=== PATIENT | male | born 1965 | race Caucasian/White ===

== ENCOUNTER 2021-05-16 14:58 | Inpatient (IN) | payer OTHER, SELFPAY ==
[2021-05-16] VITALS (7 sets, daily range): BP systolic 118–159; BP diastolic 65–87
[~2021-05-16] VITALS: Ht 177.8 cm; Wt 82.1 kg
--- NOTE | 2021-05-16 15:00 | NUR ---
Griffin BURT via gurney to bed 07.
--- NOTE | 2021-05-16 15:13 | NUR ---
PER ERMD 12 LEAD WAS DONE ON PT AND CAME BACK SINUS TACHYCARDIA AT 129 HR.
[2021-05-16] MEDS ORDERED: LORazepam 2 MG/ML VIAL IVP ONE (15:20)
[2021-05-16] MEDS ORDERED: ONDANSETRON 4 MG/2 ML VIAL IVP ONE (15:20)
[2021-05-16] MEDS ORDERED: KETOROLAC 30 MG/ML VIAL IVP ONE (15:20)
[2021-05-16] MEDS ORDERED: NACL 0.9% 2,000 ML IV ONE (15:20)
--- NOTE | 2021-05-16 15:30 | NUR ---
56 Y MALE BIBA C/O TO ABDOMINAL PAIN. PER EMS "PT HAS BEEN UNABLE TO HOLD FOOD DOWN FOR THE PAST 3 DAYS." C/O N/V. PT ALSO STATED "HE STARTED A NEW MEDICATION CALLED TRULICTY BEFORE THE SYMPTOMS STARTED TO OCCUR." PER EMS "PT IS EXPERINCING ANXIETY CURRENTLY WELL." PMH: HM, HLD, HTN, ANXIETY, PARKINSON'S NKA
[2021-05-16] MEDS ORDERED: MORPHINE SULFATE 4 MG/ML SYR IVP ONE (15:35)
[2021-05-16 15:48] LABS: HEMATOCRIT 54.1 % (36-52); HEMOGLOBIN 17.9 g/dL (12.0-18.0); MEAN CORPUSCULAR HEMOGLOBIN 31 pg (27-31); MEAN CORPUSCULAR HGB CONC 33 g/dL (33-37); MEAN CORPUSCULAR VOLUME 93.2 fL (80-94); PLATELET COUNT (AUTO) 356 K/uL (140-450); RED CELL DISTRIBUTION WIDTH 13.8 % (11.6-13.7)
[2021-05-16 15:52] LABS: WHITE BLOOD COUNT (AUTO) 26.7 K/uL (4.8-10.8)
[2021-05-16] MEDS ORDERED: METOCLOPRAMIDE 10 MG/2 ML INJ VIAL IVP ONE (16:05)
[2021-05-16] MEDS ORDERED: diphenhydrAMINE 50 MG/ML VIAL IVP ONE (16:05)
[2021-05-16 16:09] LABS: ALBUMIN 4.8 g/dL (3.4-5.0); ANION GAP 34.7 (8-16); CREATININE 1.7 mg/dL (0.6-1.3); POTASSIUM 5.4 mmol/L (3.5-5.1); TOTAL BILIRUBIN 0.6 mg/dL (0.0-1.0)
[2021-05-16 16:13] LABS: LYMPHOCYTES % (MANUAL) 6 % (20-46); MONOCYTES % (MANUAL) 7 % (5-12)
--- NOTE | 2021-05-16 16:15 | NUR ---
lab bedside with patient
[2021-05-16 16:19] LABS: CARBON DIOXIDE 8.7 mmol/L (21-32)
--- NOTE | 2021-05-16 16:21 | NUR ---
PT TAKEN VIA GURNEY TO CT SCAN
[2021-05-16] MEDS ORDERED: NACL 0.9% 1,500 ML IV ONE (16:25)
--- NOTE | 2021-05-16 16:30 | NUR ---
pt returned from ct scan
[2021-05-16] MEDS ORDERED: GABA300C PO (16:35)
[2021-05-16] MEDS ORDERED: TRAM50TA1 PO (16:35)
[2021-05-16] MEDS ORDERED: BUPR150T12 PO (16:35)
[2021-05-16] MEDS ORDERED: BUS5 PO (16:35)
[2021-05-16] MEDS ORDERED: OMEP40EC23 PO (16:35)
[2021-05-16] MEDS ORDERED: DULA0.75 SC (16:35)
[2021-05-16] MEDS ORDERED: VENL150C1 PO (16:35)
[2021-05-16] MEDS ORDERED: METO25TE2 PO (16:35)
[2021-05-16] MEDS ORDERED: ATOR10TA PO (16:35)
[2021-05-16] MEDS ORDERED: ISOS20TA13 PO (16:35)
[2021-05-16] MEDS ORDERED: LIRA6SOL1 SQ (16:35)
[2021-05-16] MEDS ORDERED: ALOG25TA PO (16:35)
[2021-05-16] MEDS ORDERED: EMPA25TA PO (16:35)
[2021-05-16] MEDS ORDERED: VORT5TAB PO (16:35)
[2021-05-16] MEDS ORDERED: [UNRECOGNIZED DRUG - CODE] MC (16:35)
[2021-05-16] MEDS ORDERED: TERA5CAP8 PO (16:35)
[2021-05-16] MEDS ORDERED: HYDR-5191 PO (16:35)
[2021-05-16] MEDS ORDERED: LISI-487 PO (16:35)
--- NOTE | 2021-05-16 16:35 | NUR ---
lab and rt at bedside
[2021-05-16] MEDS ORDERED: INSULIN REGULAR, HUMAN 100 UNIT in NACL 0.9% 100 ML IV ONE ×2 (16:55)
[2021-05-16] MEDS ORDERED: PIPERACILLIN/TAZOBACTAM 3.375 GM in DEXTROSE 5% 50 ML IV ONE (16:55)
[2021-05-16] MEDS ORDERED: INSULIN REGULAR, HUMAN 100 UNIT in NACL 0.9% 100 ML IV SCH ×4 (16:59→17:05)
[2021-05-16] MEDS ORDERED: PIPERACILLIN/TAZOBACTAM 3.375 GM VIAL IV ONE (16:59)
[2021-05-16] MEDS ORDERED: ACETAMINOPHEN 325 MG TAB PO PRN (17:05)
[2021-05-16] MEDS ORDERED: MORPHINE SULFATE 2 MG/ML SYR IVP PRN (17:05)
[2021-05-16] MEDS ORDERED: MAG SULF 2000 MG/WATER PREMIX 50 ML IV PRN (17:05)
[2021-05-16] MEDS: BLOOD GLUCOSE MONITORING 1 DEV DEV FS SCH ×7 (17:05→23:28)
[2021-05-16] MEDS ORDERED: ONDANSETRON 4 MG/2 ML VIAL IM/IVP PRN (17:05)
[2021-05-16] MEDS ORDERED: HYDROcodone/APAP 5/325 MG 1 TAB TAB PO PRN (17:05)
[2021-05-16] MEDS ORDERED: MAGNESIUM OXIDE 400 MG TAB PO PRN (17:05)
[2021-05-16] MEDS ORDERED: DEXTROSE 50% 50 ML SYR IVP PRN (17:05)
[2021-05-16] MEDS ORDERED: DOCUSATE SODIUM 100 MG GELCAP PO PRN (17:05)
[2021-05-16] MEDS ORDERED: SODIUM BICARBONATE 4.2% 5 MEQ/10 ML SYR IV ONE (17:15)
--- NOTE | 2021-05-16 17:44 | NUR ---
Patient will be admitted to care of DR PACHECO. Admited to ICU. Will go to room ICU-8. Belongings list completed. Report to YAHAIRA OZUNA.
--- NOTE | 2021-05-16 17:45 | NUR ---
RECEIVED BEDSIDE REPORT FROM ED RN CASPER, PT RESTING, AWAKE ALERT, ABLE TO LET NEEDS KNOWN, YI SPEAKING, AAOX4. IV TO LEFT HAND 20G, PATENT INTACT, INFUSING INSULIN @ 8UNITS/HR AND BOLUS NS. PT ON ROOM AIR, NO SOB NOTED, SATURATING @ 100%. 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
[2021-05-16] MEDS ORDERED: SODIUM BICARBONATE 8.4% PFS 50 MEQ/50 ML SYR IVP SCH (18:00)
--- NOTE | 2021-05-16 18:00 | NUR ---
PT ARRIVED IN UNIT, TRANSFER PT TO BED, TOLERATED WELL, MRSA SWAB TAKEN, ORIENT PT TO CALL LIGHT ROOM, AND RESTROOM, PT STATED UNDERSTANDING, WILL CONTINUE TO MONITOR.
[2021-05-16 18:06] LABS: APPEARANCE,URINE CLEAR (CLEAR); BILIRUBIN,URINE 2+ (NEGATIVE); BLOOD, URINE 1+ (NEGATIVE); COLOR,URINE YELLOW (YELLOW); LEUKOCYTE ESTERASE ,URINE NEGATIVE (NEGATIVE); NITRITE, URINE NEGATIVE (NEGATIVE); UGLUCOSE 3+ (NEGATIVE)
[2021-05-16] MEDS: PANTOPRAZOLE 40 MG INJ VIAL IVP SCH (18:10)
[2021-05-16] MEDS: NACL 0.9% 1,000 ML IV SCH ×2 (18:11→20:00)
[2021-05-16 18:18] LABS: BARBITURATE, URINE NEGATIVE ng/ml (NEG <=200); BENZODIAZEPINE, URINE NEGATIVE ng/mL (NEG <=200); CANNABINOID, URINE POSITIVE ng/mL (NEG <=50); COCAINE, URINE NEGATIVE ng/mL (NEG <=300); OPIATE, URINE POSITIVE ng/mL (NEG <=2000); PHENCYCLIDINE SCREEN,URINE NEGATIVE ng/mL (NEG <=25)
--- NOTE | 2021-05-16 18:21 | NUR ---
CALLED DR. PACHECO REGARDING PT C/O HE JUST GOT 4MG IV MORPHINE 2HRS PRIOR. PER DR TO CHANGE ORDER MORPHINE TO 2MG IV PRN SEVERE PAIN Q3H, AND TRAMADOL 50MG Q6H PO PRN MEDIUM PAIN. AND OK TO GIVE 1 DOSE OF MORPHINE RIGHT NOW. WILL PUT IN ORDERS AND CONTINUE WITH ORDERS.
--- NOTE | 2021-05-16 18:22 | NUR ---
PT STATED HAVING TROUBLE BREATHING, HR ELEVATED, RR ELEVATED, PUT PT ON 2LPM O2 VIA NC. WILL CONTINUE TO MONITOR.
[2021-05-16 18:24] LABS: RBC,URINE 0-5 /HPF (0-5); WBC,URINE 0-5 /HPF (0-5)
[2021-05-16 18:25] LABS: FINE GRANULAR CASTS,URINE 0-10 /LPF (None Seen)
[2021-05-16 18:25] LABS: MAGNESIUM 2.1 mg/dL (1.8-2.4); PHOSPHORUS 5.7 mg/dL (2.5-4.9)
[2021-05-16] MEDS: MORPHINE SULFATE 2 MG/ML SYR IVP PRN ×2 (18:27→23:30)
--- NOTE | 2021-05-16 19:20 | NUR ---
RECEIVED REPORT FROM DAY SHIFT RN. PATIENT IS AOX4, ABLE TO MAKE NEEDS KNOWN, AMBULATORY. ST ON MONITOR. ON ROOM AIR. IV ON LH 22G CLEAN, DRY, AND INTACT, INFUSING INSULIN AT 8 UNITS/HR, PER MD ORDER. NPO EXCEPT MEDS. AMBULATES WITH ASSISTANCE TO RESTROOM. GENERAL FARMWORKER, PULSE OXIMETER, AND SAFETY MEASURES IN PLACE. BED IN LOW POSITION, BED LOCKED, HEAD OF BED IN COMFORTABLE POSITION. WILL CONTINUE TO MONITOR.
--- NOTE | 2021-05-16 19:21 | NUR ---
ENDORSED TO EMBOSSED OR IMPRESSED LETTERING PAINTER NURSE JOSEPH FOR CONTINUITY OF CARE.
[2021-05-16 20:36] LABS: ANION GAP 28.2 (8-16); CARBON DIOXIDE 11.7 mmol/L (21-32); CREATININE 1.5 mg/dL (0.6-1.3); POTASSIUM 4.9 mmol/L (3.5-5.1)
[2021-05-16 20:40] LABS: MAGNESIUM 1.7 mg/dL (1.8-2.4); PHOSPHORUS 2.9 mg/dL (2.5-4.9)
[2021-05-16] MEDS ORDERED: ISOSORBIDE DINITRATE 20 MG TAB PO SCH (21:00)
--- NOTE | 2021-05-16 21:05 | NUR ---
CHECKED BLOOD SUGAR, 100. STARTED D5 1/2 NS AT 200 ML/HR AND DECREASED INSULIN TO 0.05 UNITS/KG/HR PER PROTOCOL. WILL CONTINUE TO MONITOR.
[2021-05-16] MEDS: DEXT 5% / NACL 0.45% 1,000 ML IV SCH (21:45)
[2021-05-16] MEDS: METOPROLOL SUCCINATE 50 MG TABER PO SCH (21:47)
[2021-05-16] MEDS: buPROPion 150 MG TABER PO SCH (21:48)
--- NOTE | 2021-05-16 21:50 | NUR ---
ADMINISTERED SCHEDULED MEDICATION. PATIENT IS RESTING IN BED. DENIES PAIN. NO SIGNS OF DISTRESS. WILL CONTINUE TO MONITOR.
[2021-05-16] MEDS: ISOSORBIDE DINITRATE 20 MG TAB PO SCH (21:59)
--- NOTE | 2021-05-16 22:45 | NUR ---
PICC LINE NURSE, ADAM OZUNA, ARRIVED AND INSERTED PICC. XRAY ORDERED PER PROTOCOL.
[2021-05-17] VITALS (24 sets, daily range): BP systolic 90–151; BP diastolic 51–96
--- NOTE | 2021-05-17 00:10 | NUR ---
XRAY CONFIRMS PICC LINE IN PLACE AND ABLE TO USE. WILL CONTINUE TO MONITOR.
[2021-05-17] MEDS: BLOOD GLUCOSE MONITORING 1 DEV DEV FS SCH ×24 (00:31→23:05)
[2021-05-17 00:52] LABS: CREATININE 1.3 mg/dL (0.6-1.3); POTASSIUM 4.5 mmol/L (3.5-5.1)
[2021-05-17 00:54] LABS: CARBON DIOXIDE 9.5 mmol/L (21-32)
[2021-05-17 00:57] LABS: MAGNESIUM 1.7 mg/dL (1.8-2.4)
[2021-05-17] MEDS: traMADol 50 MG TAB PO PRN (01:50)
--- NOTE | 2021-05-17 02:02 | NUR ---
CHECKED ON PATIENT. NO SIGNS OF DISTRESS. PATIENT REPORTS PAIN, TRAMADOL GIVEN. WILL CONTINUE TO MONITOR.
[2021-05-17] MEDS: NACL 0.9% 1,000 ML IV SCH ×5 (03:05→23:05)
[2021-05-17] MEDS: DEXT 5% / NACL 0.45% 1,000 ML IV SCH ×2 (03:59→04:16)
[2021-05-17] MEDS: MORPHINE SULFATE 2 MG/ML SYR IVP PRN ×4 (03:59→21:50)
--- NOTE | 2021-05-17 05:00 | NUR ---
CHECKED ON PATIENT. RESTING IN BED. NO SIGNS OF PAIN OR DISTRESS. WILL CONTINUE TO MONITOR.
[2021-05-17 05:09] LABS: ANION GAP 20.3 (8-16); CARBON DIOXIDE 14.5 mmol/L (21-32); CREATININE 1.3 mg/dL (0.6-1.3); POTASSIUM 3.8 mmol/L (3.5-5.1)
[2021-05-17 05:12] LABS: BASOPHILS % (AUTO) 0.1 % (0.0-2.0); HEMATOCRIT 42.2 % (36-52); HEMOGLOBIN 14.4 g/dL (12.0-18.0); LYMPHOCYTES # (AUTO) 1.9 K/uL (2.0-11.5); LYMPHOCYTES % (AUTO) 9.2 % (20.5-51.1); MEAN CORPUSCULAR HEMOGLOBIN 31 pg (27-31); MEAN CORPUSCULAR HGB CONC 34 g/dL (33-37); MEAN CORPUSCULAR VOLUME 90.3 fL (80-94); MONOCYTES # (AUTO) 2.1 K/uL (0.8-1.0); MONOCYTES % (AUTO) 10.4 % (1.7-9.3); NEUTROPHILS # (AUTO) 16.3 K/uL (1.8-7.7); NEUTROPHILS % (AUTO) 80.3 % (42.2-75.2); PLATELET COUNT (AUTO) 250 K/uL (140-450); RED BLOOD CELL COUNT(AUTO) 4.68 MIL/uL (4.20-6.10); RED CELL DISTRIBUTION WIDTH 13.4 % (11.6-13.7); WHITE BLOOD COUNT (AUTO) 20.3 K/uL (4.8-10.8)
[2021-05-17 05:14] LABS: MAGNESIUM 1.6 mg/dL (1.8-2.4); PHOSPHORUS 1.6 mg/dL (2.5-4.9)
--- NOTE | 2021-05-17 06:15 | NUR ---
CHECKED ON PATIENT. RESTING IN BED. NO SIGNS OF PAIN OR DISTRESS. WILL CONTINUE TO MONITOR.
--- NOTE | 2021-05-17 06:54 | NUR ---
PATIENT HAS BEEN SCREENED AND CATEGORIZED HIGH NUTRITION RISK. PATIENT WILL BE SEEN WITHIN 1-2 DAYS OF ADMISSION. 05/18/21-05/19/21 GABRIELA BENAVIDES MS, RDN
--- NOTE | 2021-05-17 07:15 | NUR ---
RECEIVED REPORT FROM RUSSIAN HISTORY PROFESSOR NURSE. PT IS RESTING IN BED AND STABLE. A & O X 4 AND ABLE TO AMBULATE. PICC LINE IS INTACT AND PATENT WITH INSULIN AT 0.05 UNITS/KG/HR AND D5NS0.45 AT 250 ML/HR. PT IS ON ROOM AIR WITH NO SIGN OF DISTRESS OR SOB. PT IS ABLE TO UTILIZE VOID ON HIS OWN. SKIN IS INTACT AND DRY. GAP IS AT 20.3 AND BLOOD GLUCOSE IS AT 80. WILL CONTINUE TO MONITOR AND ASSESS THROUGHOUT SHIFT.
--- NOTE | 2021-05-17 08:50 | NUR ---
DR ALMARAZ CAME AND ASSESSED PT AND ORDERED A FULL LIQUID DIET.
[2021-05-17] MEDS: VENLAFAXINE XR 75 MG CAPER PO SCH (08:59)
[2021-05-17] MEDS: PANTOPRAZOLE 40 MG INJ VIAL IVP SCH (08:59)
[2021-05-17] MEDS: lisinopriL 20 MG TAB PO SCH (09:00)
[2021-05-17] MEDS: ISOSORBIDE DINITRATE 20 MG TAB PO SCH ×2 (09:00→21:00)
--- NOTE | 2021-05-17 09:00 | NUR ---
MEDICATIONS WERE ADMINISTERED AND PT TOLERATED WELL.
[2021-05-17 09:01] LABS: ANION GAP 16.8 (8-16); CARBON DIOXIDE 15.7 mmol/L (21-32); CREATININE 1.1 mg/dL (0.6-1.3); POTASSIUM 3.5 mmol/L (3.5-5.1)
[2021-05-17] MEDS: ATORVASTATIN 20 MG TAB PO SCH (09:01)
[2021-05-17] MEDS: METOPROLOL SUCCINATE 50 MG TABER PO SCH ×2 (09:01→21:00)
[2021-05-17] MEDS: TERAZOSIN 1 MG CAP PO SCH (09:01)
[2021-05-17] MEDS: busPIRone 5 MG TAB PO SCH (09:02)
[2021-05-17] MEDS: buPROPion 150 MG TABER PO SCH ×2 (09:02→20:48)
[2021-05-17] MEDS: GABAPENTIN 300 MG CAP PO SCH (09:02)
[2021-05-17 09:05] LABS: MAGNESIUM 1.6 mg/dL (1.8-2.4); PHOSPHORUS 1.5 mg/dL (2.5-4.9)
--- NOTE | 2021-05-17 09:50 | NUR ---
PLACED ORDER FOR FULL LIQUID DIET PER DR ALMARAZ ORDERS.
--- NOTE | 2021-05-17 10:21 | NUR ---
MORPHINE WAS ADMINISTER FOR BACK PAIN AT A PAIN SCALE OF 7/10. PT TOLERATED WELL.
--- NOTE | 2021-05-17 11:00 | NUR ---
MAGNESIUM ADMINISTER PER PROTOCOL.
[2021-05-17 12:13] LABS: ANION GAP 17.5 (8-16); CARBON DIOXIDE 14.9 mmol/L (21-32); POTASSIUM 3.4 mmol/L (3.5-5.1)
[2021-05-17 12:18] LABS: MAGNESIUM 2.1 mg/dL (1.8-2.4); PHOSPHORUS 1.4 mg/dL (2.5-4.9)
[2021-05-17] MEDS: SODIUM PHOS / POTASSIUM PHOS 1 PKT PDR PO PRN (16:13)
[2021-05-17] MEDS: POTASSIUM CHLORIDE 40 MEQ, LIDOCAINE MPF 1% 25 MG in NACL 0.9% 250 ML IV PRN (16:41)
--- NOTE | 2021-05-17 16:45 | NUR ---
PRN PHOSPHOROUS AND POTASSIUM ADMINISTERED PER MD ORDERS.
[2021-05-17 17:07] LABS: ALBUMIN 3.1 g/dL (3.4-5.0); CARBON DIOXIDE 19.6 mmol/L (21-32); MAGNESIUM 2.1 mg/dL (1.8-2.4); PHOSPHORUS 1.3 mg/dL (2.5-4.9); POTASSIUM 3.6 mmol/L (3.5-5.1); TOTAL BILIRUBIN 0.6 mg/dL (0.0-1.0)
--- NOTE | 2021-05-17 17:15 | NUR ---
URINE CULTURE COLLECTED AND SENT TO LAB PER MD ORDERS
--- NOTE | 2021-05-17 19:20 | NUR ---
ENDORSED TO DIVISION MERCHANDISE MANAGER RN OF CONTINUITY OF CARE.
[2021-05-17 20:27] LABS: MAGNESIUM 2.2 mg/dL (1.8-2.4); PHOSPHORUS 1.6 mg/dL (2.5-4.9)
[2021-05-17 20:29] LABS: ANION GAP 15.9 (8-16); CARBON DIOXIDE 18.4 mmol/L (21-32); CREATININE 0.9 mg/dL (0.6-1.3); POTASSIUM 4.3 mmol/L (3.5-5.1); TOTAL BILIRUBIN 0.6 mg/dL (0.0-1.0)
[2021-05-17] MEDS ORDERED: cefTRIAXone 1,000 MG VIAL ONE (21:13)
[2021-05-18] VITALS (15 sets, daily range): BP systolic 118–153; BP diastolic 66–97
[2021-05-18] MEDS: BLOOD GLUCOSE MONITORING 1 DEV DEV FS SCH ×15 (00:05→20:12)
[2021-05-18 00:22] LABS: MAGNESIUM 1.6 mg/dL (1.8-2.4)
[2021-05-18 00:25] LABS: PHOSPHORUS 1.1 mg/dL (2.5-4.9)
[2021-05-18 00:37] LABS: ALBUMIN 2.5 g/dL (3.4-5.0); ANION GAP 20.7 (8-16); CARBON DIOXIDE 12.5 mmol/L (21-32); POTASSIUM 3.2 mmol/L (3.5-5.1); TOTAL BILIRUBIN 0.6 mg/dL (0.0-1.0)
[2021-05-18 01:23] LABS: ANION GAP 19.3 (8-16); CARBON DIOXIDE 16.5 mmol/L (21-32); CREATININE 0.9 mg/dL (0.6-1.3); POTASSIUM 3.8 mmol/L (3.5-5.1); TOTAL BILIRUBIN 0.7 mg/dL (0.0-1.0)
[2021-05-18] MEDS: SODIUM PHOS / POTASSIUM PHOS 1 PKT PDR PO PRN ×2 (03:02→14:09)
[2021-05-18] MEDS: NACL 0.9% 1,000 ML IV SCH ×4 (04:42→18:53)
[2021-05-18 05:30] LABS: PHOSPHORUS 1.2 mg/dL (2.5-4.9)
[2021-05-18 05:32] LABS: BASOPHILS % (AUTO) 0.2 % (0.0-2.0); EOSINOPHILS # (AUTO) 0.1 K/uL (0-0.4); EOSINOPHILS % (AUTO) 0.6 % (0.0-4.0); HEMATOCRIT 34.9 % (36-52); HEMOGLOBIN 12.4 g/dL (12.0-18.0); LYMPHOCYTES % (AUTO) 11.8 % (20.5-51.1); MEAN CORPUSCULAR HEMOGLOBIN 32 pg (27-31); MEAN CORPUSCULAR HGB CONC 35 g/dL (33-37); MEAN CORPUSCULAR VOLUME 88.9 fL (80-94); MONOCYTES # (AUTO) 0.8 K/uL (0.8-1.0); MONOCYTES % (AUTO) 9.7 % (1.7-9.3); NEUTROPHILS # (AUTO) 6.6 K/uL (1.8-7.7); NEUTROPHILS % (AUTO) 77.7 % (42.2-75.2); PLATELET COUNT (AUTO) 139 K/uL (140-450); RED BLOOD CELL COUNT(AUTO) 3.93 MIL/uL (4.20-6.10); RED CELL DISTRIBUTION WIDTH 13.6 % (11.6-13.7); WHITE BLOOD COUNT (AUTO) 8.5 K/uL (4.8-10.8)
[2021-05-18 05:37] LABS: CARBON DIOXIDE 17.6 mmol/L (21-32); CREATININE 0.9 mg/dL (0.6-1.3); POTASSIUM 3.6 mmol/L (3.5-5.1); TOTAL BILIRUBIN 0.7 mg/dL (0.0-1.0)
--- NOTE | 2021-05-18 07:30 | NUR ---
Report given to CELSO Oro RN. All questions answered.
--- NOTE | 2021-05-18 07:30 | NUR ---
RECEIVED REPORT FROM ADOLESCENT MEDICINE SPECIALIST RN. PT IS RESTING IN BED. A&O 4 AND IS ABLE TO AMBULATE TO THE RESTROOM AND CONDUCT SELF CARE. RIGHT PICC CENTRAL LINE CATH 2 LUMEN. INSULIN DRIP UNITS/KG/HR, AND D5/ NS 0.45% AT 150 ML/HR. PT ON RA. FULL LIQUID DIET. SKIN INTACT. CONTINUE WITH POC.
[2021-05-18] MEDS: VENLAFAXINE XR 75 MG CAPER PO SCH (08:23)
[2021-05-18] MEDS: TERAZOSIN 1 MG CAP PO SCH (08:24)
[2021-05-18] MEDS: PANTOPRAZOLE 40 MG INJ VIAL IVP SCH (08:25)
[2021-05-18] MEDS: busPIRone 5 MG TAB PO SCH (08:25)
[2021-05-18] MEDS: lisinopriL 20 MG TAB PO SCH (08:26)
[2021-05-18] MEDS: GABAPENTIN 300 MG CAP PO SCH ×3 (08:27→17:09)
[2021-05-18] MEDS: METOPROLOL SUCCINATE 50 MG TABER PO SCH ×2 (08:27→20:12)
[2021-05-18] MEDS: buPROPion 150 MG TABER PO SCH ×2 (08:28→20:12)
[2021-05-18] MEDS: ATORVASTATIN 20 MG TAB PO SCH (08:28)
[2021-05-18] MEDS: ISOSORBIDE DINITRATE 20 MG TAB PO SCH ×2 (08:28→20:12)
[2021-05-18 08:43] LABS: MAGNESIUM 2.1 mg/dL (1.8-2.4); PHOSPHORUS 1.8 mg/dL (2.5-4.9)
[2021-05-18 08:58] LABS: ANION GAP 14.3 (8-16); CARBON DIOXIDE 20.1 mmol/L (21-32); CREATININE 0.8 mg/dL (0.6-1.3); POTASSIUM 3.4 mmol/L (3.5-5.1); TOTAL BILIRUBIN 0.7 mg/dL (0.0-1.0)
--- NOTE | 2021-05-18 10:20 | NUR ---
PRN MORPHINE ADMINISTERED PER MD ORDERS FOR LOW BACK PAIN 03/18.
[2021-05-18] MEDS: MORPHINE SULFATE 2 MG/ML SYR IVP PRN (10:21)
[2021-05-18] MEDS: POTASSIUM CHLORIDE 40 MEQ, LIDOCAINE MPF 1% 25 MG in NACL 0.9% 250 ML IV PRN (11:54)
--- NOTE | 2021-05-18 11:54 | NUR ---
PRN POTASSIUM ADMNISTER PER MD ORDERS
[2021-05-18 12:24] LABS: ANION GAP 15.1 (8-16); CARBON DIOXIDE 20.3 mmol/L (21-32); CREATININE 0.8 mg/dL (0.6-1.3); MAGNESIUM 1.9 mg/dL (1.8-2.4); PHOSPHORUS 1.4 mg/dL (2.5-4.9); POTASSIUM 3.4 mmol/L (3.5-5.1); TOTAL BILIRUBIN 0.7 mg/dL (0.0-1.0)
[2021-05-18] MEDS ORDERED: DEXTROSE 50% 50 ML SYR IVP PRN (12:50)
--- NOTE | 2021-05-18 13:05 | NUR ---
SPOKE TO DR PACHECO REGARDING PT, PER DR PACHECO TO DC INSULIN DRIP, DR WILL PUT IN ORDER FOR ACHS BLOOD SUGAR CHECKS, SLIDING SCALE, AND LANTUS 6UNITS. PER DR PACHECO ALSO TO CHANGE NS RATE TO 150ML/HR. WILL CONTINUE WITH ORDERS.
--- NOTE | 2021-05-18 14:00 | NUR ---
PRN PHOSPHORUS ADMINISTER PER MD ORDERS. CONTINUE TO MONITOR.
[2021-05-18 16:26] LABS: ANION GAP 18.5 (8-16); CARBON DIOXIDE 17.8 mmol/L (21-32); CREATININE 0.8 mg/dL (0.6-1.3); POTASSIUM 4.3 mmol/L (3.5-5.1)
[2021-05-18] MEDS: INSULIN LISPRO SLIDING SCALE 100 UNITS/ML VIAL SUBQ PRN ×2 (17:09→21:40)
[2021-05-18] MEDS ORDERED: SODIUM BICARBONATE 8.4% 100 MEQ in NACL 0.9% 1,000 ML IV SCH (17:15)
--- NOTE | 2021-05-18 17:18 | NUR ---
DR PACHECO STATED TO ORDER 2 AMPS OF BICARB AND CHANGE PT FLUIDS TO 200ML/HR, WILL CONTINUE WITH ORDERS.
[2021-05-18] MEDS ORDERED: SODIUM BICARBONATE 8.4% PFS 50 MEQ/50 ML SYR IVP ONE (17:20)
--- NOTE | 2021-05-18 19:37 | NUR ---
CHECKED ON PT, PT SLEEPING, NO DISTRESS NOTED, CALL LIGHT WITHIN REACH, WILL CONTINUE TO MONITOR.
--- NOTE | 2021-05-18 20:21 | NUR ---
DUE MEDICATION GIVEN, PT TOLERATED WELL, BLOOD DRAWN FROM PICC WITH ASEPTIC TECHNIQUE, SENT TO LAB, NO DISTRESS NOTED, WILL CONTINUE TO MONITOR.
--- NOTE | 2021-05-18 20:48 | NUR ---
GAVE REPORT TO SULMA PINTO FOR CONTINUOUS OF CARE, PT IN STABLE CONDITION, NO DISTRESS NOTED.
[2021-05-18 21:01] LABS: ANION GAP 16.9 (8-16); CARBON DIOXIDE 20.1 mmol/L (21-32); CREATININE 0.9 mg/dL (0.6-1.3)
--- NOTE | 2021-05-18 21:09 | NUR ---
REPORTED TO DR PACHECO ABOUT PATIENT'S CURRENT ANION GAP , WENT DOWN TO 16.9, VBG RESULTS WITH HCO3 20.6, CURRENT BS 228. DR PACHECO APPROVED FOR PATIENT TO GO TO TELE 104.
--- NOTE | 2021-05-18 22:00 | NUR ---
PATIENT TRANFERRED TO TELE 104B. BS 228 MG/DL, HUMALOG INSULIN 4 UNITS SUBQ GIV[facility]IOR [facility]. ENDORSED PATIENT AND REPORT GIVEN TO BEVERLY ROMERO LVN. ALL BELONGINGS WITH THE PATIENTS. DENIES PAIN OR ANY DISCOMFORT, NO ACUTE DISTRESS.
--- NOTE | 2021-05-18 22:01 | NUR ---
RECD. RESTING IN BED, TRANSFER FROM ICU. AWAKE, A/OX4. RESPIRATION EVEN AND UNLABORED. IV OF NS INFUSING AT 150 ML/HR RIGHT UPPER ARM PICC LINE. SAFETY MEASURES ENFORCED, BED IN THE LOWEST POSITION, SIDE RAILS UP, CALL LIGHT IN REACH. AMBULATORY TO THE BR. ORIENTED TO ROOM, INSTRUCTED TO USE CALL LIGHT WHENEVER NEEDING HELP OR ASSISTANCE. SINUS RHYTHM ON TELE MONITOR. VS STABLE. DENIES PAIN 0/10.
--- NOTE | 2021-05-18 22:45 | NUR ---
ATE 50% OF SNACK FOR THE NIGHT.
[2021-05-18] MEDS ORDERED: INSULIN LANTUS 100 UNITS/ML 10 ML VIAL SUBQ SCH (23:15)
[2021-05-18] MEDS: traMADol 50 MG TAB PO PRN (23:29)
--- NOTE | 2021-05-18 23:44 | NUR ---
Patient's Plan of Care was discussed and reviewed with SEWER LINE REPAIRER: BEVERLY ROMERO
[2021-05-19] VITALS: BP 119/75
--- NOTE | 2021-05-19 00:18 | NUR ---
BS CHECKED - 193. ADMINISTERED LANTUS 6 UNITS X 1 DOSE PER MD ORDER, CO-SIGNED BY SULMA STINSON.
--- NOTE | 2021-05-19 00:37 | NUR ---
INFORMED DR. PACHECO, ABG'S WAS DONE, VBG HC03 IS 17.1, WENT DOWN FROM 20.6. WILL CHECK BMP AND WILL MAKE ORDERS.
[2021-05-19 00:53] LABS: ANION GAP 12.1 (8-16); CARBON DIOXIDE 23.4 mmol/L (21-32); CREATININE 0.8 mg/dL (0.6-1.3); POTASSIUM 3.5 mmol/L (3.5-5.1)
[2021-05-19] MEDS: NACL 0.9% 1,000 ML IV SCH ×3 (02:31→10:26)
--- NOTE | 2021-05-19 02:35 | NUR ---
SLEEPING COMFORTABLY IN BED, RESPIRATION EVEN AND UNLABORED.
[2021-05-19] MEDS: MORPHINE SULFATE 2 MG/ML SYR IVP PRN ×2 (02:51→08:25)
[2021-05-19 04:22] LABS: ALBUMIN 2.9 g/dL (3.4-5.0); ANION GAP 9.4 (8-16); CREATININE 0.8 mg/dL (0.6-1.3); MAGNESIUM 1.7 mg/dL (1.8-2.4); POTASSIUM 3.4 mmol/L (3.5-5.1); TOTAL BILIRUBIN 0.6 mg/dL (0.0-1.0)
[2021-05-19 05:00] VITALS: BP 145/101
--- NOTE | 2021-05-19 05:15 | NUR ---
INFORMED DR. VERGARA HCO3 AT 0400 IS 18.9, ANION GAP IS 9.4. PATIENT BP IS 145/101 AND VERBALIZED HE IS IN SO MUCH PAIN /. ORDERED A ONE TIME DOSE OF MORPHINE 4 MG. IVP.
[2021-05-19] MEDS ORDERED: MORPHINE SULFATE 4 MG/ML SYR IVP ONE (05:20)
[2021-05-19 05:54] LABS: BASOPHILS % (AUTO) 0.7 % (0.0-2.0); EOSINOPHILS # (AUTO) 0.1 K/uL (0-0.4); EOSINOPHILS % (AUTO) 1.9 % (0.0-4.0); HEMATOCRIT 32.9 % (36-52); HEMOGLOBIN 11.6 g/dL (12.0-18.0); LYMPHOCYTES # (AUTO) 1.2 K/uL (2.0-11.5); LYMPHOCYTES % (AUTO) 17.9 % (20.5-51.1); MEAN CORPUSCULAR HEMOGLOBIN 32 pg (27-31); MEAN CORPUSCULAR HGB CONC 35 g/dL (33-37); MEAN CORPUSCULAR VOLUME 89.7 fL (80-94); MONOCYTES # (AUTO) 0.8 K/uL (0.8-1.0); MONOCYTES % (AUTO) 12.9 % (1.7-9.3); NEUTROPHILS # (AUTO) 4.4 K/uL (1.8-7.7); NEUTROPHILS % (AUTO) 66.6 % (42.2-75.2); PLATELET COUNT (AUTO) 131 K/uL (140-450); RED BLOOD CELL COUNT(AUTO) 3.66 MIL/uL (4.20-6.10); RED CELL DISTRIBUTION WIDTH 13.4 % (11.6-13.7); WHITE BLOOD COUNT (AUTO) 6.6 K/uL (4.8-10.8)
[2021-05-19] MEDS: BLOOD GLUCOSE MONITORING 1 DEV DEV FS SCH (06:00)
--- NOTE | 2021-05-19 06:00 | NUR ---
BS CHECKED - 178. HUMALOG SLIDING SCALE COVERAGE ADMINISTERED PER MD ORDER.
[2021-05-19] MEDS: INSULIN LISPRO SLIDING SCALE 100 UNITS/ML VIAL SUBQ PRN (06:01)
--- NOTE | 2021-05-19 07:26 | NUR ---
CONDITION REMAIN STABLE. ENDORSED TO AM SHIFT NURSE FOR CONTINUITY OF CARE.
--- NOTE | 2021-05-19 07:27 | NUR ---
BEDSIDE REPORT RECEIVED FROM LIQUID SUGAR FORTIFIER NURSE. PATIENT IN BED RESTING ON HIS SIDE. PATIENT IS ABLE TO MAKE NEEDS KNOWN. PATIENT ASKED TO CALL BEFORE GETTING OUT OF BED.
[2021-05-19 08:00] VITALS: BP 133/89
[2021-05-19] MEDS: PANTOPRAZOLE 40 MG INJ VIAL IVP SCH (08:22)
[2021-05-19 08:24] LABS: ANION GAP 14.5 (8-16); CARBON DIOXIDE 21.2 mmol/L (21-32); CREATININE 0.6 mg/dL (0.6-1.3); POTASSIUM 3.7 mmol/L (3.5-5.1)
--- NOTE | 2021-05-19 08:26 | NUR ---
PATIENT COMPLAINS OF 10/10 LOWER BACK PAIN . PRN MEDICATION GIVEN PER MD ORDER. PT EDUCTAED AND VERBALIZED UNDERSTANDING.
[2021-05-19] MEDS: VENLAFAXINE XR 75 MG CAPER PO SCH (08:39)
[2021-05-19] MEDS: ISOSORBIDE DINITRATE 20 MG TAB PO SCH (08:39)
[2021-05-19] MEDS: GABAPENTIN 300 MG CAP PO SCH (08:40)
[2021-05-19] MEDS: ATORVASTATIN 20 MG TAB PO SCH (08:40)
[2021-05-19] MEDS ORDERED: HUMSLIDE SUBQ (08:40)
[2021-05-19] MEDS: busPIRone 5 MG TAB PO SCH (08:40)
[2021-05-19] MEDS ORDERED: ATOR20TA40 PO (08:40)
[2021-05-19] MEDS: lisinopriL 20 MG TAB PO SCH (08:41)
[2021-05-19] MEDS: TERAZOSIN 1 MG CAP PO SCH (08:41)
[2021-05-19] MEDS ORDERED: LANC1COM6 MC (08:45)
[2021-05-19] MEDS ORDERED: [UNRECOGNIZED DRUG - CODE] MC (08:45)
[2021-05-19] MEDS ORDERED: [UNRECOGNIZED DRUG - CODE] MC (08:45)
[2021-05-19] MEDS ORDERED: INSULIN LANTUS 100 UNITS/ML 10 ML VIAL SUBQ SCH ×2 (09:00)
[2021-05-19] MEDS ORDERED: METOPROLOL 25 MG TAB PO SCH (09:00)
[2021-05-19] MEDS: buPROPion 150 MG TABER PO SCH (09:03)
--- NOTE | 2021-05-19 09:07 | NUR ---
MEDICATIONS GIVEN PER MD ORDER PT EDUCATED AND VERBALIZED UNDERSTNDING.
--- NOTE | 2021-05-19 10:56 | NUR ---
PATIENT DISCHARGE INSTRUCTIONS COMPLETE WITH AT BEDSIDE. PATIENT VERBALIZED UNDERSTANDING FOR CONTINUITY OF CARE. ARMBAND REMOVED , CENTRAL LINE REMOVED PT TOLERATED WELL, CANULA INTACT. TELE MONITOR REMOVED , RETURNED TO TELE MONITOR. PATIENT ADVISED TO FOLLOW CONTINUITY OF CARE WITH PRIMARY PROVIDER. ALL SAFETY MEASURES ARE IN PLACE.
[2021-05-19] MEDS ORDERED: LIRA6SOL1 SQ (11:45)
--- NOTE | 2021-05-19 15:12 | NUR ---
DC PLANNING: CALLED [facility] SPOKE WITH [facility] STATED DIDN'T RECEIVE ANY CLINICALS. FAXED ALL THE CLINICALS AND UPDATED PT'S DC. CM TO FOLLOW
== END 2021-05-19 10:55 | disposition home or self-care (01) | DRG 637 ==
LOC: MED 14:58 → MTU 17:12 → MIC 17:24 → MTU 05-18 22:00
PROVIDERS: ADMIT Hospitalist; ATTEND Hospitalist
PROC: 02HV33Z Insertion of Infusion Device into Superior Vena Cava, Percutaneous Approach (ICD-10-PCS; principal; 2021-05-16)
PROC: B548ZZA Ultrasonography of Superior Vena Cava, Guidance (ICD-10-PCS; 2021-05-16)
DX: E11.10 Type 2 diabetes mellitus with ketoacidosis without coma (principal); N17.0 Acute kidney failure with tubular necrosis; R65.10 Systemic inflammatory response syndrome (SIRS) of non-infectious origin without acute organ dysfunction; I10 Essential (primary) hypertension; I20.9 Angina pectoris, unspecified; E78.5 Hyperlipidemia, unspecified; E83.39 Other disorders of phosphorus metabolism; E87.5 Hyperkalemia; E86.0 Dehydration; E11.40 Type 2 diabetes mellitus with diabetic neuropathy, unspecified; N40.0 Benign prostatic hyperplasia without lower urinary tract symptoms; K57.30 Diverticulosis of large intestine without perforation or abscess without bleeding; F32.A Depression, unspecified; F41.9 Anxiety disorder, unspecified; K80.20 Calculus of gallbladder without cholecystitis without obstruction; Z20.822 Contact with and (suspected) exposure to COVID-19; Z79.891 Long term (current) use of opiate analgesic; Z79.899 Other long term (current) drug therapy
CPT/HCPCS: 36415; 71045; 80048; 80053; 80305; 81001; 82009; 82803; 82948; 83036; 83605; 83690; 83735; 84100; 84484; 85025; 87040; 87081; 87086; 93005; 96361; 96365; 96375; 99291; C9113; J0696; J1200; J1815; J1885; J2001; J2060; J2270; J2405; J2543; J2765; J3475; J3480; J7030; J7060